=== PATIENT | female | born 1985 | race Caucasian/White ===

== ENCOUNTER 2018-12-25 14:01 | Inpatient (IN) | payer OTHER ==
[~2018-12-25] VITALS: Ht 162.6 cm; Wt 95.5 kg
[2018-12-25 15:45] LABS: HEMATOCRIT 38.2 % (36.0-48.0); HEMOGLOBIN 12.6 g/dL (12.0-16.0); MEAN CORPUSCULAR HEMOGLOBIN 27.9 pg (28.0-32.0); MEAN CORPUSCULAR VOLUME 84.5 fL (81.0-99.0); PLATELET 194 x1000/uL (130-400); RED BLOOD CELL COUNT 4.51 mill/uL (4.2-5.4)
[2018-12-25] MEDS ORDERED: KETOROLAC 30MG/ML VIAL IV ONE (15:45)
[2018-12-25 15:49] LABS: CHLORIDE 106 mEq/L (98-107)
[2018-12-25 17:24] LABS: *AMPHETAMINES SCREEN URINE NEGATIVE (NEGATIVE); *BARBITURATES SCREEN URINE NEGATIVE (NEGATIVE); *BENZODIAZEPINES SCREEN URINE NEGATIVE (NEGATIVE)
[2018-12-25 17:25] LABS: METHADONE URINE SCREEN NEGATIVE (NEGATIVE)
[2018-12-25 17:27] LABS: CANNABINOID URINE SCREEN NEGATIVE (NEGATIVE)
[2018-12-25 17:28] LABS: *COCAINE SCREEN URINE NEGATIVE (NEGATIVE); OPIATES URINE SCREEN NEGATIVE (NEGATIVE)
[2018-12-25 17:29] LABS: PHENCYCLIDINE URINE SCREEN NEGATIVE (NEGATIVE)
[2018-12-25] MEDS ORDERED: NIMODIPINE 30MG CAPSULE PO ONE (17:45)
[2018-12-25] MEDS: LEVETIRACETAM 500MG PREMIX 100 ML IV NR ×2 (18:00→19:20)
[2018-12-25] MEDS ORDERED: LIDOCAINE HCL/EPINEPHRINE 1%-EPI 1:100,000 30 ML VIAL INFIL ONE (18:45)
[2018-12-25] MEDS ORDERED: LIDOCAINE HCL/EPINEPHRINE 1%-EPI 1:100,000 20 ML VIAL INFIL ONE (18:48)
[2018-12-25 20:15] LABS: GLUCOSE CSF 85 mg/dL (41-75)
[2018-12-25] MEDS ORDERED: NICARDIPINE 100 MG in SODIUM CHLORIDE 0.9% 60 ML IV PRN (20:15)
[2018-12-25] MEDS ORDERED: GADOBENATE DIMEGLUMINE 529 MG/ML 10ML IV ONE (21:06)
[2018-12-25] MEDS ORDERED: MORPHINE SULFATE 4 MG/ML CPJ (NOT FOR IM USE) IV ONE (22:00)
[2018-12-25] MEDS ORDERED: DEXAMETHASONE 4MG/ML 1ML VIAL IV NR (22:30)
[2018-12-25] MEDS ORDERED: DEXT 5%/LACTATED RINGERS 1,000 ML IV SCH (22:30)
[2018-12-25] MEDS: MORPHINE SULFATE 4 MG/ML CPJ (NOT FOR IM USE) IV PRN (22:56)
[2018-12-26] VITALS (53 sets, daily range): BP systolic 90–129; BP diastolic 48–84
[2018-12-26] MEDS ORDERED: ACET-2708 PO (05:46)
[2018-12-26] MEDS ORDERED: DEXAMETHASONE 4MG/ML 1ML VIAL IV SCH (06:00)
[2018-12-26] MEDS ORDERED: DOCUSATE SODIUM 100MG CAPSULE PO PRN (09:00)
[2018-12-26] MEDS ORDERED: ACETAMINOPHEN 650MG SUPP PR PRN (09:00)
[2018-12-26] MEDS ORDERED: LEVETIRACETAM 500MG PREMIX 100 ML IV SCH (09:00)
[2018-12-26] MEDS ORDERED: ONDANSETRON HCL 4MG/2ML INJ IV PRN (09:00)
[2018-12-26] MEDS ORDERED: GUAIFENESIN 200MG/10ML SUGAR FREE UDC PO PRN (09:00)
[2018-12-26] MEDS ORDERED: DIPHENHYDRAMINE 50MG/ML VIAL IV PRN (09:00)
[2018-12-26] MEDS ORDERED: IPRATROPIUM/ALBUTEROL 0.5-3(2.5)MG/3ML NEB INH PRN (09:00)
[2018-12-26] MEDS: LEVETIRACETAM 500MG in SODIUM CHLORIDE 0.9% 100ML IV SCH ×2 (09:22→21:52)
[2018-12-26 10:24] LABS: HEMATOCRIT. 36.3 % (36.0-48.0); MEAN CORPUSCULAR HEMOGLOBIN 28.2 pg (28.0-32.0); MEAN CORPUSCULAR VOLUME 85.1 fL (81.0-99.0); MEAN PLATELET VOLUME 8.5 fl (7.4-10.4); PLATELET 216 x1000/uL (130-400); RED BLOOD CELL COUNT 4.27 mill/uL (4.2-5.4); RED CELL DISTRIBUTION WIDTH 15.3 % (11.6-14.6)
[2018-12-26 10:39] LABS: CHLORIDE 108 mEq/L (98-107)
[2018-12-26 11:49] LABS: CLARITY URINE CLEAR (CLEAR); COLOR URINE YELLOW (YELLOW); KETONES URINE NEGATIVE (NEGATIVE); LEUKOCYTE ESTERASE URINE NEGATIVE (NEGATIVE); NITRITE URINE NEGATIVE (NEGATIVE); OCCULT BLOOD URINE NEGATIVE (NEGATIVE); PROTEIN URINE NEGATIVE (NEGATIVE); SPECIFIC GRAVITY URINE 1.018 (1.005-1.030); UROBILINOGEN URINE 0.2 E.U./dL (0.2-1.0)
[2018-12-26] MEDS ORDERED: DEXTROSE 50% WATER 50ML SYRINGE IV PRN (12:30)
[2018-12-26] MEDS: BLOOD SUGAR DIAGNOSTIC STRIP TEST SCH ×3 (12:44→21:00)
[2018-12-26] MEDS: INSULIN LISPRO 100 UNITS/ML SUBCUT SCH ×3 (12:44→21:00)
[2018-12-26 13:13] LABS: PLATELET ESTIMATE NORMAL
[2018-12-26] MEDS ORDERED: IOHEXOL-350 100 ML BOTTLE ONE (14:18)
[2018-12-26 15:08] LABS: HCG SCREEN NEGATIVE
[2018-12-26 15:13] LABS: CREATINE KINASE 104 IU/L (26-192)
[2018-12-26 15:14] LABS: CREATINE KINASE MB FRACTION < 1.0 ng/mL (0.5-3.6)
[2018-12-26] MEDS ORDERED: BLOOD SUGAR DIAGNOSTIC STRIP TEST SCH (16:30)
[2018-12-26] MEDS ORDERED: INSULIN LISPRO 100 UNITS/ML SUBCUT SCH (17:00)
[2018-12-26] MEDS: MORPHINE SULFATE 4 MG/ML CPJ (NOT FOR IM USE) IV PRN (17:01)
[2018-12-26 23:27] LABS: CREATINE KINASE 74 IU/L (26-192)
[2018-12-26 23:29] LABS: CREATINE KINASE MB FRACTION < 1.0 ng/mL (0.5-3.6)
== END 2018-12-26 23:27 | disposition short-term general hospital (02) | DRG 65 ==
LOC: ER 14:01 → MICUSO 22:32 → ENRESERV 12-26 03:21
PROVIDERS: ADMIT Internal Medicine; ATTEND Internal Medicine
DX: I60.9 Nontraumatic subarachnoid hemorrhage, unspecified (principal); G40.89 Other seizures; I61.1 Nontraumatic intracerebral hemorrhage in hemisphere, cortical; E11.9 Type 2 diabetes mellitus without complications; Z83.3 Family history of diabetes mellitus; Z79.84 Long term (current) use of oral hypoglycemic drugs
CPT/HCPCS: 36415; 70496; 70553; 80305; 82438; 82550; 82553; 82945; 82962; 83735; 84100; 84703; 85027; 87070; 93970; 96365; 96375; 99291; A9577; J1100; J1885; J1953; J2270; J3490; J7050; Q9967; A4315